=== PATIENT | female | born 1945 | race African-American/Black ===

== ENCOUNTER 2022-01-28 10:04 | Inpatient (IN) | payer OTHER, MEDICAID ==
[~2022-01-28] VITALS: Ht 157.5 cm; Wt 66.3 kg
[2022-01-28 12:31] LABS: BASOPHILS % 0.3 % (0.0-2.0); EOSINOPHILS % 1.4 % (0.0-5.0); HEMATOCRIT. 40.2 % (36.0-48.0); HEMOGLOBIN. 13.5 g/dL (12.0-16.0); LYMPHOCYTES % 10.3 % (20.0-50.0); MEAN CORPUSCULAR HEMOGLOBIN 31.6 pg (28.0-32.0); MEAN CORPUSCULAR VOLUME 93.9 fL (81.0-99.0); MEAN PLATELET VOLUME 7.5 fl (7.4-10.4); MONOCYTES % 8.9 % (2.0-8.0); NEUTROPHILS % 79.1 % (40.0-76.0); PLATELET 163 x1000/uL (130-400); RED BLOOD CELL COUNT 4.29 mill/uL (4.2-5.4); RED CELL DISTRIBUTION WIDTH 15.4 % (11.6-14.6)
[2022-01-28 12:37] LABS: CHLORIDE 100 mEq/L (98-107)
[2022-01-28] MEDS ORDERED: DOCUSATE SODIUM 100MG CAPSULE PO PRN (15:45)
[2022-01-28] MEDS ORDERED: ACETAMINOPHEN 650MG SUPP PR PRN (15:45)
[2022-01-28] MEDS ORDERED: LORAZEPAM 0.5MG TABLET PO PRN (15:45)
[2022-01-28] MEDS ORDERED: IPRATROPIUM/ALBUTEROL 0.5-3(2.5)MG/3ML NEB NEB PRN (15:45)
[2022-01-28] MEDS ORDERED: DEXTROSE 50% WATER 50ML SYRINGE IV PRN (15:45)
[2022-01-28] MEDS ORDERED: MAGNESIUM/ALUMINUM HYDROXIDE/SIMETHICONE 30ML UDC PO PRN (15:45)
[2022-01-28] MEDS ORDERED: ACETAMINOPHEN 325MG TABLET PO PRN (15:45)
[2022-01-28] MEDS ORDERED: CLONIDINE 0.1MG TABLET PO PRN (15:45)
[2022-01-28] MEDS ORDERED: ONDANSETRON HCL 4MG/2ML INJ IV PRN (15:45)
[2022-01-28] MEDS ORDERED: NA PHOS,M-B/NA PHOS,DI-BA ENEMA 118ML PR PRN (15:45)
[2022-01-28] MEDS ORDERED: DIPHENHYDRAMINE 50MG/ML VIAL IV PRN (15:45)
[2022-01-28] MEDS ORDERED: GUAIFENESIN 200MG/10ML SUGAR FREE UDC PO PRN (15:45)
[2022-01-28] MEDS ORDERED: CEFTRIAXONE 1 G PREMIX 50 ML IV NR (16:00)
[2022-01-28] MEDS ORDERED: CEFTRIAXONE 1,000 MG in DEXTROSE 5% WATER 50 ML IV NR (17:08)
[2022-01-28] MEDS: BLOOD SUGAR DIAGNOSTIC STRIP TEST SCH ×2 (17:24→21:28)
[2022-01-28] MEDS: SODIUM CHLORIDE 0.45% 1,000 ML IV SCH (17:38)
[2022-01-28] MEDS: ENOXAPARIN 30MG/0.3ML SYR SUBCUT SCH (17:39)
[2022-01-28] MEDS: INSULIN LISPRO 100 UNITS/ML SUBCUT SCH ×2 (17:40→21:38)
[2022-01-28] MEDS: HYDROCODONE/ACETAMINOPHEN 5/325MG TABLET PO PRN (18:06)
[2022-01-28 18:28] VITALS: BP 121/77
[2022-01-28] MEDS ORDERED: NALOXONE HCL 0.4MG/ML VIAL IV PRN (19:45)
[2022-01-28 20:00] VITALS: BP 141/67
[2022-01-28] MEDS: FAMOTIDINE 20MG TABLET PO SCH (21:37)
[2022-01-28 22:05] LABS: INR 1.8
[2022-01-28 22:15] LABS: CREATINE KINASE 354 IU/L (26-192); CREATINE KINASE MB FRACTION 2.8 ng/mL (0.5-3.6)
[2022-01-28] MEDS ORDERED: OFLO5DRO RIGHTEYE (22:20)
[2022-01-28] MEDS ORDERED: MAGN500T2 MT (22:20)
[2022-01-28] MEDS ORDERED: LATA2.5D14 EACHEYE (22:20)
[2022-01-28] MEDS ORDERED: FERR325T6 PO (22:20)
[2022-01-28] MEDS ORDERED: LIDO700A30 TP (22:20)
[2022-01-28] MEDS ORDERED: LIDO1ADH5 TP (22:20)
[2022-01-28] MEDS ORDERED: LOSA1TAB40 MT (22:20)
[2022-01-28] MEDS ORDERED: POLY15DR17 EACHEYE (22:20)
[2022-01-28] MEDS ORDERED: METF-414 PO (22:20)
[2022-01-28] MEDS ORDERED: POTA20TA82 MT (22:20)
[2022-01-28] MEDS ORDERED: TRAZ-251 MT (22:20)
[2022-01-28] MEDS ORDERED: CARV25TA47 MT (22:20)
[2022-01-28] MEDS ORDERED: SENN-257 MT (22:20)
[2022-01-28] MEDS ORDERED: PRED5DRO22 RIGHTEYE (22:20)
[2022-01-28] MEDS ORDERED: HYDR-4134 MT (22:20)
[2022-01-28] MEDS ORDERED: DORZ10DR17 OP (22:20)
[2022-01-28] MEDS ORDERED: HYDR25TA MT (22:20)
[2022-01-28] MEDS ORDERED: NIFE30TA94 PO (22:20)
[2022-01-28] MEDS ORDERED: DAPA10TA PO (22:20)
[2022-01-28] MEDS ORDERED: BRIM5DRO6 EACHEYE (22:20)
[2022-01-28] MEDS ORDERED: TEMA7.5C6 PO (22:20)
[2022-01-28] MEDS ORDERED: ATOR-2 PO (22:20)
[2022-01-28] MEDS ORDERED: SPIR25TA6 PO (22:23)
[2022-01-28] MEDS ORDERED: CYAN-50 PO (22:23)
[2022-01-28] MEDS ORDERED: TRAM50TA3 MT (22:23)
[2022-01-29] VITALS (8 sets, daily range): BP systolic 123–155; BP diastolic 58–74
[2022-01-29 00:32] LABS: CLARITY URINE CLOUDY (CLEAR); COLOR URINE DARK YELLOW (YELLOW); KETONES URINE TRACE (NEGATIVE); LEUKOCYTE ESTERASE URINE TRACE (NEGATIVE); NITRITE URINE NEGATIVE (NEGATIVE); OCCULT BLOOD URINE TRACE (NEGATIVE); PROTEIN URINE 3+ (NEGATIVE)
[2022-01-29] MEDS: BLOOD SUGAR DIAGNOSTIC STRIP TEST SCH ×4 (06:18→20:31)
[2022-01-29] MEDS: HYDROCODONE/ACETAMINOPHEN 5/325MG TABLET PO PRN ×3 (06:26→19:54)
[2022-01-29 07:10] LABS: BASOPHILS % 0.5 % (0.0-2.0); EOSINOPHILS % 4.7 % (0.0-5.0); HEMATOCRIT. 33.3 % (36.0-48.0); HEMOGLOBIN. 11.4 g/dL (12.0-16.0); LYMPHOCYTES % 14.8 % (20.0-50.0); MEAN CORPUSCULAR HEMOGLOBIN 31.9 pg (28.0-32.0); MEAN CORPUSCULAR VOLUME 92.9 fL (81.0-99.0); MEAN PLATELET VOLUME 7.8 fl (7.4-10.4); MONOCYTES % 12.5 % (2.0-8.0); NEUTROPHILS % 67.5 % (40.0-76.0); PLATELET 145 x1000/uL (130-400); RED BLOOD CELL COUNT 3.58 mill/uL (4.2-5.4); RED CELL DISTRIBUTION WIDTH 15.6 % (11.6-14.6)
[2022-01-29 07:35] LABS: CHLORIDE 101 mEq/L (98-107)
[2022-01-29 07:42] LABS: HDL CHOLESTEROL 77 mg/dL (40-59); LDL CHOLESTEROL 62 mg/dL (5-100)
[2022-01-29 07:53] LABS: CREATINE KINASE 306 IU/L (26-192); CREATINE KINASE MB FRACTION 2.7 ng/mL (0.5-3.6)
[2022-01-29] MEDS: SODIUM CHLORIDE 0.45% 1,000 ML IV SCH (08:25)
[2022-01-29] MEDS: ASPIRIN 81MG EC TABLET PO SCH (08:53)
[2022-01-29] MEDS: INSULIN LISPRO 100 UNITS/ML SUBCUT SCH ×4 (08:54→20:31)
[2022-01-29] MEDS: CEFTRIAXONE 1,000 MG in DEXTROSE 5% WATER 50 ML IV SCH (18:05)
[2022-01-29] MEDS: ENOXAPARIN 30MG/0.3ML SYR SUBCUT SCH (18:06)
[2022-01-29] MEDS: FAMOTIDINE 20MG TABLET PO SCH (20:30)
[2022-01-30] VITALS: BP 115/55
[2022-01-30] MEDS: SODIUM CHLORIDE 0.45% 1,000 ML IV SCH ×2 (01:05→17:45)
[2022-01-30 04:00] VITALS: BP 121/62
[2022-01-30] MEDS: INSULIN LISPRO 100 UNITS/ML SUBCUT SCH ×4 (06:00→22:35)
[2022-01-30] MEDS: HYDROCODONE/ACETAMINOPHEN 5/325MG TABLET PO PRN ×4 (06:00→23:15)
[2022-01-30] MEDS: BLOOD SUGAR DIAGNOSTIC STRIP TEST SCH ×4 (06:03→21:00)
[2022-01-30] MEDS ORDERED: DILTIAZEM HCL 5MG/ML 5ML VIAL IV NR (06:30)
[2022-01-30 08:00] VITALS: BP 101/81
[2022-01-30] MEDS: ASPIRIN 81MG EC TABLET PO SCH (08:54)
[2022-01-30 10:00] LABS: HEMATOCRIT. 28.2 % (36.0-48.0); HEMOGLOBIN. 9.7 g/dL (12.0-16.0); MEAN CORPUSCULAR HEMOGLOBIN 32.5 pg (28.0-32.0); MEAN CORPUSCULAR VOLUME 94.6 fL (81.0-99.0); MEAN PLATELET VOLUME 7.8 fl (7.4-10.4); RED BLOOD CELL COUNT 2.99 mill/uL (4.2-5.4); RED CELL DISTRIBUTION WIDTH 15.8 % (11.6-14.6)
[2022-01-30 10:20] LABS: CHLORIDE 102 mEq/L (98-107)
[2022-01-30 10:56] LABS: PLATELET ESTIMATE NORMAL
[2022-01-30 10:59] LABS: PLATELET 107 x1000/uL (130-400)
[2022-01-30 12:00] VITALS: BP_SYST 127; BP_SYST 129; BP_SYST 131; BP_DIAS 57; BP_DIAS 60; BP_DIAS 65
[2022-01-30] MEDS: DILTIAZEM HCL 30MG TABLET PO SCH ×3 (12:46→23:16)
[2022-01-30] MEDS ORDERED: MAGNESIUM 2 G PREMIX 50 ML IV NR (13:00)
[2022-01-30 15:56] VITALS: BP 120/56
[2022-01-30] MEDS ORDERED: OFLOXACIN 0.3% OPHTH SOLN 5ML RIGHTEYE SCH (16:00)
[2022-01-30] MEDS: POLYVINYL ALCOHOL OPHTH DROPS 15ML EACHEYE SCH ×2 (16:12→22:28)
[2022-01-30] MEDS: BRIMONIDINE 0.2% OPHTH DROPS 5ML EACHEYE SCH ×2 (16:12→22:28)
[2022-01-30] MEDS: PREDNISOLONE ACETATE 1% OPHTH DROPS 5ML RIGHTEYE SCH ×3 (16:12→22:30)
[2022-01-30] MEDS: CIPROFLOXACIN 0.3% OPHTH SOLN 2.5ML RIGHTEYE SCH ×2 (16:12→22:29)
[2022-01-30] MEDS: CEFTRIAXONE 1,000 MG in DEXTROSE 5% WATER 50 ML IV SCH (17:00)
[2022-01-30 19:48] LABS: TOTAL IRON BINDING CAPACITY 372 ug/dL (250-450)
[2022-01-30 20:00] VITALS: BP 129/55
[2022-01-30 22:05] LABS: INR 1.6; PROTHROMBIN TIME 16.2 sec (9.6-11.0)
[2022-01-30 22:22] LABS: HEPATITIS B SURFACE AB 17.7 mIU/mL
[2022-01-30] MEDS: FAMOTIDINE 20MG TABLET PO SCH (22:23)
[2022-01-30] MEDS: LATANOPROST 0.005% OPHTH DROPS 2.5ML EACHEYE SCH (22:24)
[2022-01-30 22:32] LABS: HEPATITIS B SURFACE ANTIGEN NEGATIVE
[2022-01-31] VITALS (7 sets, daily range): BP systolic 102–160; BP diastolic 52–67
[2022-01-31] MEDS: HYDROCODONE/ACETAMINOPHEN 5/325MG TABLET PO PRN ×2 (05:52→21:04)
[2022-01-31] MEDS: DILTIAZEM HCL 30MG TABLET PO SCH ×3 (05:52→18:04)
[2022-01-31 06:31] LABS: HEMATOCRIT. 26.1 % (36.0-48.0); HEMOGLOBIN. 8.9 g/dL (12.0-16.0); MEAN CORPUSCULAR HEMOGLOBIN 32.1 pg (28.0-32.0); MEAN CORPUSCULAR VOLUME 93.7 fL (81.0-99.0); MEAN PLATELET VOLUME 7.2 fl (7.4-10.4); PLATELET 163 x1000/uL (130-400); RED BLOOD CELL COUNT 2.78 mill/uL (4.2-5.4); RED CELL DISTRIBUTION WIDTH 15.8 % (11.6-14.6)
[2022-01-31 06:44] LABS: CHLORIDE 101 mEq/L (98-107)
[2022-01-31 07:02] LABS: VITAMIN B12 SERUM 1071 pg/mL (211-911)
[2022-01-31] MEDS: BLOOD SUGAR DIAGNOSTIC STRIP TEST SCH ×4 (07:02→20:57)
[2022-01-31] MEDS: ASPIRIN 81MG EC TABLET PO SCH (08:18)
[2022-01-31] MEDS: POLYVINYL ALCOHOL OPHTH DROPS 15ML EACHEYE SCH ×2 (08:18→20:48)
[2022-01-31] MEDS: CIPROFLOXACIN 0.3% OPHTH SOLN 2.5ML RIGHTEYE SCH ×4 (08:19→20:49)
[2022-01-31] MEDS: BRIMONIDINE 0.2% OPHTH DROPS 5ML EACHEYE SCH ×2 (08:19→20:48)
[2022-01-31] MEDS: PREDNISOLONE ACETATE 1% OPHTH DROPS 5ML RIGHTEYE SCH ×4 (08:19→20:47)
[2022-01-31] MEDS: INSULIN LISPRO 100 UNITS/ML SUBCUT SCH ×4 (08:20→20:50)
[2022-01-31] MEDS ORDERED: POTASSIUM CHLORIDE 20MEQ/PACKET PO NR (09:15)
[2022-01-31] MEDS: SODIUM CHLORIDE 0.45% 1,000 ML IV SCH (10:25)
[2022-01-31 11:24] LABS: PLATELET ESTIMATE NORMAL
[2022-01-31] MEDS ORDERED: LEVO500T89 MT (12:58)
[2022-01-31] MEDS ORDERED: DILT30TA38 MT (12:58)
[2022-01-31] MEDS: CEFTRIAXONE 1,000 MG in DEXTROSE 5% WATER 50 ML IV SCH (17:00)
[2022-01-31] MEDS: FERROUS SULFATE 325MG TABLET PO SCH (18:03)
[2022-01-31] MEDS: LATANOPROST 0.005% OPHTH DROPS 2.5ML EACHEYE SCH (20:48)
[2022-01-31] MEDS: FAMOTIDINE 20MG TABLET PO SCH (20:50)
[2022-02-01] VITALS: BP 116/45
[2022-02-01] MEDS: HYDROCODONE/ACETAMINOPHEN 5/325MG TABLET PO PRN ×3 (01:08→21:44)
[2022-02-01] MEDS: DILTIAZEM HCL 30MG TABLET PO SCH ×4 (01:09→17:22)
[2022-02-01] MEDS: SODIUM CHLORIDE 0.45% 1,000 ML IV SCH (03:05)
[2022-02-01 04:00] VITALS: BP 124/49
[2022-02-01] MEDS: BLOOD SUGAR DIAGNOSTIC STRIP TEST SCH ×4 (05:56→21:52)
[2022-02-01 08:00] VITALS: BP 115/49
[2022-02-01] MEDS: FERROUS SULFATE 325MG TABLET PO SCH ×2 (08:32→17:20)
[2022-02-01] MEDS: ASPIRIN 81MG EC TABLET PO SCH (08:32)
[2022-02-01] MEDS: BRIMONIDINE 0.2% OPHTH DROPS 5ML EACHEYE SCH ×2 (08:33→21:46)
[2022-02-01] MEDS: CIPROFLOXACIN 0.3% OPHTH SOLN 2.5ML RIGHTEYE SCH ×4 (08:34→21:44)
[2022-02-01] MEDS: PREDNISOLONE ACETATE 1% OPHTH DROPS 5ML RIGHTEYE SCH ×4 (08:34→21:46)
[2022-02-01] MEDS: POLYVINYL ALCOHOL OPHTH DROPS 15ML EACHEYE SCH ×2 (08:34→21:45)
[2022-02-01] MEDS: INSULIN LISPRO 100 UNITS/ML SUBCUT SCH ×4 (08:52→21:41)
[2022-02-01 12:00] VITALS: BP 118/64
[2022-02-01] MEDS: CEFTRIAXONE 1,000 MG in DEXTROSE 5% WATER 50 ML IV SCH (15:28)
[2022-02-01 16:00] VITALS: BP 142/77
[2022-02-01 20:00] VITALS: BP_SYST 140; BP_SYST 156; BP_DIAS 57; BP_DIAS 80
[2022-02-01] MEDS: FAMOTIDINE 20MG TABLET PO SCH (21:42)
[2022-02-01] MEDS: LATANOPROST 0.005% OPHTH DROPS 2.5ML EACHEYE SCH (21:46)
[2022-02-02] VITALS: BP 124/56
[2022-02-02] MEDS: DILTIAZEM HCL 30MG TABLET PO SCH ×4 (00:32→17:51)
[2022-02-02 04:00] VITALS: BP 145/54
[2022-02-02] MEDS: INSULIN LISPRO 100 UNITS/ML SUBCUT SCH ×4 (07:48→21:00)
[2022-02-02] MEDS: BLOOD SUGAR DIAGNOSTIC STRIP TEST SCH ×4 (07:48→21:53)
[2022-02-02 08:00] VITALS: BP 155/51
[2022-02-02] MEDS: FERROUS SULFATE 325MG TABLET PO SCH ×2 (08:35→17:53)
[2022-02-02] MEDS: ASPIRIN 81MG EC TABLET PO SCH (08:35)
[2022-02-02] MEDS: BRIMONIDINE 0.2% OPHTH DROPS 5ML EACHEYE SCH ×2 (08:36→21:48)
[2022-02-02] MEDS: CIPROFLOXACIN 0.3% OPHTH SOLN 2.5ML RIGHTEYE SCH ×4 (08:36→21:49)
[2022-02-02] MEDS: PREDNISOLONE ACETATE 1% OPHTH DROPS 5ML RIGHTEYE SCH ×4 (08:36→21:48)
[2022-02-02] MEDS: POLYVINYL ALCOHOL OPHTH DROPS 15ML EACHEYE SCH ×2 (08:36→21:47)
[2022-02-02] MEDS: HYDROCODONE/ACETAMINOPHEN 5/325MG TABLET PO PRN ×2 (08:40→18:04)
[2022-02-02 12:00] VITALS: BP 155/68
[2022-02-02 16:00] VITALS: BP 169/67
[2022-02-02 20:00] VITALS: BP 141/62
[2022-02-02] MEDS: FAMOTIDINE 20MG TABLET PO SCH (21:47)
[2022-02-02] MEDS: LATANOPROST 0.005% OPHTH DROPS 2.5ML EACHEYE SCH (21:47)
[2022-02-03] VITALS: BP 140/57
[2022-02-03] MEDS: DILTIAZEM HCL 30MG TABLET PO SCH ×4 (00:57→18:35)
[2022-02-03] MEDS: HYDROCODONE/ACETAMINOPHEN 5/325MG TABLET PO PRN ×4 (02:40→21:58)
[2022-02-03 04:00] VITALS: BP 136/62
[2022-02-03] MEDS: BLOOD SUGAR DIAGNOSTIC STRIP TEST SCH ×4 (06:26→21:58)
[2022-02-03] MEDS: INSULIN LISPRO 100 UNITS/ML SUBCUT SCH ×4 (06:26→22:03)
[2022-02-03 08:00] VITALS: BP 144/53
[2022-02-03] MEDS: FERROUS SULFATE 325MG TABLET PO SCH ×2 (08:42→18:35)
[2022-02-03] MEDS: ASPIRIN 81MG EC TABLET PO SCH (08:42)
[2022-02-03] MEDS: BRIMONIDINE 0.2% OPHTH DROPS 5ML EACHEYE SCH ×2 (08:43→22:03)
[2022-02-03] MEDS: CIPROFLOXACIN 0.3% OPHTH SOLN 2.5ML RIGHTEYE SCH ×4 (08:43→22:04)
[2022-02-03] MEDS: PREDNISOLONE ACETATE 1% OPHTH DROPS 5ML RIGHTEYE SCH ×4 (08:43→22:04)
[2022-02-03] MEDS: POLYVINYL ALCOHOL OPHTH DROPS 15ML EACHEYE SCH ×2 (08:43→22:03)
[2022-02-03 12:00] VITALS: BP 154/59
[2022-02-03 15:51] LABS: HEMATOCRIT. 27.6 % (36.0-48.0); HEMOGLOBIN. 9.4 g/dL (12.0-16.0); MEAN CORPUSCULAR HEMOGLOBIN 32.2 pg (28.0-32.0); MEAN CORPUSCULAR VOLUME 94.8 fL (81.0-99.0); MEAN PLATELET VOLUME 6.3 fl (7.4-10.4); PLATELET 246 x1000/uL (130-400); RED BLOOD CELL COUNT 2.91 mill/uL (4.2-5.4); RED CELL DISTRIBUTION WIDTH 16.2 % (11.6-14.6)
[2022-02-03 16:00] VITALS: BP 163/72
[2022-02-03 16:06] LABS: CHLORIDE 103 mEq/L (98-107)
[2022-02-03 16:29] LABS: PLATELET ESTIMATE NORMAL
[2022-02-03 20:00] VITALS: BP 164/48
[2022-02-03] MEDS: FAMOTIDINE 20MG TABLET PO SCH (22:03)
[2022-02-03] MEDS: LATANOPROST 0.005% OPHTH DROPS 2.5ML EACHEYE SCH (22:05)
[2022-02-04] VITALS: BP 130/58
[2022-02-04] MEDS: DILTIAZEM HCL 30MG TABLET PO SCH ×4 (01:17→17:50)
[2022-02-04 04:00] VITALS: BP 157/73
[2022-02-04] MEDS: BLOOD SUGAR DIAGNOSTIC STRIP TEST SCH ×4 (07:22→21:09)
[2022-02-04] MEDS: INSULIN LISPRO 100 UNITS/ML SUBCUT SCH ×4 (07:50→21:06)
[2022-02-04 08:00] VITALS: BP 137/57
[2022-02-04] MEDS: FERROUS SULFATE 325MG TABLET PO SCH ×2 (09:08→17:48)
[2022-02-04] MEDS: ASPIRIN 81MG EC TABLET PO SCH (09:08)
[2022-02-04] MEDS: POLYVINYL ALCOHOL OPHTH DROPS 15ML EACHEYE SCH ×2 (09:08→21:09)
[2022-02-04] MEDS: BRIMONIDINE 0.2% OPHTH DROPS 5ML EACHEYE SCH ×2 (09:08→21:08)
[2022-02-04] MEDS: CIPROFLOXACIN 0.3% OPHTH SOLN 2.5ML RIGHTEYE SCH ×4 (09:09→21:09)
[2022-02-04] MEDS: PREDNISOLONE ACETATE 1% OPHTH DROPS 5ML RIGHTEYE SCH ×4 (09:09→21:09)
[2022-02-04] MEDS: HYDROCODONE/ACETAMINOPHEN 5/325MG TABLET PO PRN ×2 (09:10→21:07)
[2022-02-04 09:43] LABS: HEMATOCRIT. 26.8 % (36.0-48.0); HEMOGLOBIN. 9.2 g/dL (12.0-16.0); MEAN CORPUSCULAR HEMOGLOBIN 32.6 pg (28.0-32.0); MEAN CORPUSCULAR VOLUME 94.9 fL (81.0-99.0); MEAN PLATELET VOLUME 6.3 fl (7.4-10.4); PLATELET 252 x1000/uL (130-400); RED BLOOD CELL COUNT 2.82 mill/uL (4.2-5.4); RED CELL DISTRIBUTION WIDTH 15.9 % (11.6-14.6)
[2022-02-04 10:02] LABS: CHLORIDE 104 mEq/L (98-107)
[2022-02-04] MEDS ORDERED: POTASSIUM CHLORIDE 20MEQ/PACKET PO NR (10:15)
[2022-02-04 12:00] VITALS: BP 127/64
[2022-02-04 13:20] LABS: PLATELET ESTIMATE NORMAL
[2022-02-04 16:00] VITALS: BP 161/57
[2022-02-04 20:00] VITALS: BP 156/51
[2022-02-04] MEDS: FAMOTIDINE 20MG TABLET PO SCH (21:07)
[2022-02-04] MEDS: LATANOPROST 0.005% OPHTH DROPS 2.5ML EACHEYE SCH (21:09)
[2022-02-05] VITALS: BP 128/58
[2022-02-05] MEDS: DILTIAZEM HCL 30MG TABLET PO SCH ×3 (02:08→13:09)
[2022-02-05 04:00] VITALS: BP 128/53
[2022-02-05] MEDS: BLOOD SUGAR DIAGNOSTIC STRIP TEST SCH ×2 (06:50→13:09)
[2022-02-05 08:00] VITALS: BP 138/79
[2022-02-05] MEDS: INSULIN LISPRO 100 UNITS/ML SUBCUT SCH ×2 (08:10→13:10)
[2022-02-05] MEDS: PREDNISOLONE ACETATE 1% OPHTH DROPS 5ML RIGHTEYE SCH ×2 (08:16→13:12)
[2022-02-05] MEDS: FERROUS SULFATE 325MG TABLET PO SCH (08:16)
[2022-02-05] MEDS: ASPIRIN 81MG EC TABLET PO SCH (08:16)
[2022-02-05] MEDS: CIPROFLOXACIN 0.3% OPHTH SOLN 2.5ML RIGHTEYE SCH ×2 (08:17→13:12)
[2022-02-05] MEDS: POLYVINYL ALCOHOL OPHTH DROPS 15ML EACHEYE SCH (08:17)
[2022-02-05] MEDS: BRIMONIDINE 0.2% OPHTH DROPS 5ML EACHEYE SCH (08:18)
[2022-02-05] MEDS: HYDROCODONE/ACETAMINOPHEN 5/325MG TABLET PO PRN (08:21)
[2022-02-05 12:00] VITALS: BP 143/50
[2022-02-05] MEDS ORDERED: MAGNESIUM OXIDE 400MG TABLET PO SCH (12:00)
[2022-02-05 15:55] VITALS: BP 149/55
== END 2022-02-05 16:20 | DRG 557 ==
LOC: ER 10:37 → EDBEDREQ 14:00 → 7WST 14:11 → EDBEDREQ 14:24 → EDBEDREQTM 14:24 → ENRESERV 15:12 → SUPCPDRO 15:34 → 7WST 01-31 16:01
PROVIDERS: ADMIT Internal Medicine; ATTEND Internal Medicine
PROC: 4A10X4Z Monitoring of Central Nervous Electrical Activity, External Approach (ICD-10-PCS; principal; 2022-01-31)
DX: M62.82 Rhabdomyolysis (principal); G93.41 Metabolic encephalopathy; I47.1 Supraventricular tachycardia; I69.354 Hemiplegia and hemiparesis following cerebral infarction affecting left non-dominant side; N39.0 Urinary tract infection, site not specified; R27.0 Ataxia, unspecified; E83.52 Hypercalcemia; I10 Essential (primary) hypertension; E11.65 Type 2 diabetes mellitus with hyperglycemia; K74.60 Unspecified cirrhosis of liver; F03.90 Unspecified dementia, unspecified severity, without behavioral disturbance, psychotic disturbance, mood disturbance, and anxiety; D64.9 Anemia, unspecified; E83.42 Hypomagnesemia; F60.9 Personality disorder, unspecified; G47.00 Insomnia, unspecified; K57.90 Diverticulosis of intestine, part unspecified, without perforation or abscess without bleeding; I25.10 Atherosclerotic heart disease of native coronary artery without angina pectoris; M17.12 Unilateral primary osteoarthritis, left knee; R53.1 Weakness; I27.20 Pulmonary hypertension, unspecified; R79.89 Other specified abnormal findings of blood chemistry; M47.812 Spondylosis without myelopathy or radiculopathy, cervical region; I08.3 Combined rheumatic disorders of mitral, aortic and tricuspid valves; E87.6 Hypokalemia; S80.02XA Contusion of left knee, initial encounter; W18.39XA Other fall on same level, initial encounter; Y93.89 Activity, other specified; Y92.89 Other specified places as the place of occurrence of the external cause; Y99.8 Other external cause status; I25.2 Old myocardial infarction; Z91.81 History of falling; Z79.899 Other long term (current) drug therapy; Z98.890 Other specified postprocedural states; R77.8 Other specified abnormalities of plasma proteins
CPT/HCPCS: 36415; 70551; 71250; 73560; 74176; 80048; 80053; 80061; 81003; 82550; 82553; 82607; 82962; 83036; 83540; 83550; 83735; 84443; 84484; 85025; 85044; 86705; 86706; 86709; 86803; 86850; 86900; 87340; 93005; 93306; 93880; 93970; 95816; 97110; 97116; 97162; 97166; 97530; 97535; 99285; J0696; J1650; J1815; J2405; J3475; J3490; J7060